=== PATIENT | female | born 1970 | race Two or more races ===

== ENCOUNTER 2020-04-17 11:50 | Emergency (ER) | payer OTHER ==
[~2020-04-17] VITALS: Ht 162.6 cm; Wt 54.4 kg
[2020-04-17 12:21] VITALS: BP 108/60
[2020-04-17] MEDS ORDERED: HYDROCODONE/APAP 5/325MG TABLET ONE (13:33)
[2020-04-17] MEDS ORDERED: IBUPROFEN 600 MG TABLET ONE (13:33)
[2020-04-17] MEDS: IBUPROFEN 600 MG TABLET PO ONE (13:37)
[2020-04-17] MEDS: HYDROCODONE/APAP 5/325MG TABLET PO ONE (13:38)
== END 2020-04-17 13:40 | disposition home or self-care (01) ==
LOC: ER 12:07
DX: S39.012A Strain of muscle, fascia and tendon of lower back, initial encounter (principal); X50.0XXA Overexertion from strenuous movement or load, initial encounter; Y93.89 Activity, other specified; Y92.89 Other specified places as the place of occurrence of the external cause; Y99.0 Civilian activity done for income or pay
CPT/HCPCS: 99283; A6403